=== PATIENT | female | born 1995 | race African-American/Black ===

== ENCOUNTER 2018-09-01 09:30 | Emergency (ER) | END 2018-09-01 10:46 | disposition home or self-care (01) ==

== ENCOUNTER 2019-06-18 18:49 | Emergency (ER) | payer BC ==
[~2019-06-18] VITALS: Ht 162.6 cm; Wt 61.1 kg
[~2019-06-18 18:49] MED LIST: ACET1TAB40 PO; AMOX500C2 PO; BENZ1LOZ52 MM; FAMO-96 PO
[2019-06-18 19:05] VITALS: BP 123/83; PULSE 88; RESP 16; Ht 162.6 cm; Wt 61.1 kg
== END 2019-06-18 19:23 | disposition home or self-care (01) ==
LOC: FTE 18:49 → E/R 19:23
DX: R10.13 Epigastric pain (principal); J45.909 Unspecified asthma, uncomplicated
CPT/HCPCS: 99283